=== PATIENT | male | born 2005 | race African-American/Black ===

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

== ENCOUNTER 2025-08-23 16:51 | Emergency (ER) | payer OTHER ==
[~2025-08-23] VITALS: Ht 170.2 cm; Wt 54.5 kg
[~2025-08-23 16:51] MED LIST changes: +IBUP-1554 PO; -IBUP200C5 PO; -TNFMISC
[2025-08-23 16:55] VITALS: BP 134/82; PULSE 71; RESP 18; TEMP 97.9; O2SAT 100
[2025-08-23] MEDS ORDERED: IBUP-1492 PO (17:48)
[2025-08-23] MEDS ORDERED: LIDO-57 TP (17:48)
[2025-08-23] MEDS: LIDOCAINE 5% TRANSDERMAL PATCH TD ONE (17:49)
[2025-08-23] MEDS: IBUPROFEN 600 MG TABLET PO ONE (17:50)
== END 2025-08-23 18:00 | disposition home or self-care (01) ==
LOC: EMS 16:51
DX: S43.101A Unspecified dislocation of right acromioclavicular joint, initial encounter (principal); Z79.899 Other long term (current) drug therapy; X50.0XXA Overexertion from strenuous movement or load, initial encounter; Y93.89 Activity, other specified; Y92.89 Other specified places as the place of occurrence of the external cause; Y99.8 Other external cause status
CPT/HCPCS: 99283

== ENCOUNTER 2025-09-26 07:17 | Emergency (ER) | payer OTHER ==
[~2025-09-26] VITALS: Ht 170.2 cm; Wt 59.1 kg
[~2025-09-26 07:17] MED LIST changes: +IBUP-1492 PO; +LIDO-57 TP
[2025-09-26 07:20] VITALS: TEMP 98.1
[2025-09-26 07:45] VITALS: BP 126/72; PULSE 60; RESP 21; O2SAT 99
[2025-09-26 08:00] LABS: PLATELET COUNT (AUTO) 227 K/uL (150-450); RED BLOOD CELL COUNT(AUTO) 4.85 MIL/uL (4.50-5.90); RED CELL DISTRIBUTION WIDTH 13.9 % (11.5-14.5); WHITE BLOOD COUNT (AUTO) 5.2 K/uL (4.5-11.0)
[2025-09-26 08:09] LABS: SODIUM SERUM 140 mmol/L (136-145)
[2025-09-26 08:18] LABS: CALCIUM, TOTAL 9.3 mg/dL (8.8-10.5); CREATININE 1.02 mg/dL (0.60-1.30); GLOMERULAR FILTR. RATE CALC > 60 mL/min (>60); GLUCOSE,RANDOM 105 mg/dL (70-110); UREA NITROGEN, BLOOD 13 mg/dL (7-18)
== END 2025-09-26 09:08 | disposition home or self-care (01) ==
LOC: EMS 07:17
DX: R00.2 Palpitations (principal); Z79.899 Other long term (current) drug therapy
CPT/HCPCS: 80048; 83735; 85025; 93005; 99284